=== PATIENT | female | born 1930 | race Caucasian/White ===

== ENCOUNTER → 2016-08-04 | Outpatient (CLI) | payer MEDICARE, OTHER ==
[2016-08-04 13:45] LABS: BLOOD GAS BASE EXCESS -0.5 mmol/L (-2-2); BLOOD GAS CARBOXYHEMOGLOBIN 1.6 % (0-4); BLOOD GAS HCO3 24 mmol/L (22-26); BLOOD GAS METHEMOGLOBIN 1.1 % (0-2); BLOOD GAS O2 HGB SATURATION 95 % (90-100); BLOOD GAS OXYGEN CONTENT 16.3 Vol % (12.0-20.0); BLOOD GAS PCO2 39 mmHg (38-42); BLOOD GAS PO2 90 mmHg (61-120); BLOOD GAS TOTAL HGB 12.2 G/DL (12.0-16.0); TEMP CORR TO 98.6
[2016-08-04 13:46] LABS: CRITICAL VALUE NO; DRAW SITE RT RADIAL; FIO2 21 %; NUMBER OF ARTERIAL PUNCTURES 1; STAT NO; ULNAR PULSE PRESENT
--- NOTE | 2016-08-10 10:54 | RSPPFT ---
DATE OF PROCEDURE: 08/04/16 COMMENTS: VOLUMES DYNAMIC: FVC mildly reduced; FEV1 normal. STATIC: FRC mildly reduced; RV and TLC low normal. FLOWS: FEV1% normal; FEF 25-75 mildly reduced. DIFFUSION: Normal. FLOW VOLUME LOOP: Mild restrictive configuration with terminal airflow obstruction. IMPRESSION: Mild terminal airflow obstruction with a mild restrictive component as well. There is no improvement post-bronchodilator. Normal diffusion capacity.
== END ==
LOC: HRSP 12:29
PROVIDERS: ATTEND Internal Medicine
DX: J44.9 Chronic obstructive pulmonary disease, unspecified (principal)
CPT/HCPCS: 36600; 82805; 94060; 94620; 94726; 94729